=== PATIENT | male | born 1965 | race Caucasian/White ===

== ENCOUNTER 2024-06-17 15:57 | Outpatient (CLI) | payer OTHER, SELFPAY ==
--- NOTE | ~2024-06-17 | US_ITS ---
EXAMINATION: US retroperitoneal comp DATE: 06/17/2024 16:19 INDICATION: Incomplete bladder emptying. TECHNIQUE: Multiple ultrasound grayscale images of the kidneys were obtained. COMPARISON: None. FINDINGS: The right kidney measures 12.1 x 5.6 x 7.2 cm. The left kidney measures 12.6 x 6.2 x 6.9 cm. The kidn eys demonstrate normal parenchymal echogenicity. There is moderate left hydronephrosis. The bladder i s distended. Prevoid bladder volume is 1336 mm. Post void bladder volume is 1572 mL. IMPRESSION: 1. Moderate left hydronephrosis. 2. Large post-void bladder volume. Reviewed, dictated and finalized at location B.
== END 2024-06-17 15:58 | disposition home or self-care (01) ==
LOC: MICIMG 15:58
DX: R33.9 Retention of urine, unspecified (principal)
CPT/HCPCS: 76770

== ENCOUNTER 2024-12-27 15:04 | Outpatient (CLI) | payer OTHER, SELFPAY ==
--- NOTE | ~2024-12-27 | US_ITS ---
EXAM: RENAL ULTRASOUND HISTORY: 6 month f/u incomplete bladder emptying COMPARISON: 06/17/2024 FINDINGS: RIGHT KIDNEY: 11.9 x 6.2 x 6.3 cm. The parenchyma of the right kidney is minimally increased in echogenicity. Mild hydronephrosis without bulky renal calculi. LEFT KIDNEY: 11.5 x 6.8 x 5.5 cm Mild hydronephrosis without renal calculi. The parenchyma of the left kidney is minimally increased in echogenicity. BLADDER: The bladder is significantly distended. The prevoid volume of the bladder measures 1280 mL. Postvoid residual measures 935 mL. IMPRESSION: 935 mL of post void residual, as detailed above. Reviewed, dictated and finalized at location A.
== END 2024-12-27 15:05 | disposition home or self-care (01) ==
LOC: MICIMG 15:05
PROVIDERS: Visit Provider Urology
DX: R33.9 Retention of urine, unspecified (principal)
CPT/HCPCS: 76770